=== PATIENT | male | born 1980 | race Caucasian/White ===

== ENCOUNTER 2016-08-12 12:18 | Emergency (ER) | payer OTHER ==
[~2016-08-12] VITALS: Ht 172.7 cm; Wt 87.8 kg
[2016-08-12 13:40] LABS: HEMATOCRIT 43.5 % (38.0-50.0); MCH 29.4 PG (29.0-34.0); MCHC 33.3 G/DL (30.0-36.0); MCV 88.2 FL (86-99); MEAN PLAT.VOLUME 10.8 uM^3 (9.0-12.4); PLATELET COUNT 185 K/uL (156-360); RBC DIS.WIDTH-CV 12.6 % (11.8-14.6); RBC DIS.WIDTH-SD 41.1 % (39-53); RED BLOOD COUNT 4.93 M/uL (4.00-5.50); WHITE BLOOD COUNT 7.4 K/uL (4.1-10.2)
[2016-08-12 13:50] LABS: CHLORIDE 104 mEq/L (99-109); POTASSIUM 3.4 mEq/L (3.7-5.4); SODIUM 141 mEq/L (136-147)
[2016-08-12 13:52] LABS: GLUCOSE 100 mg/dL (70-99)
[2016-08-12 13:53] LABS: ANION GAP 13 MEQ/L (2-14)
[2016-08-12 13:56] LABS: GFR ESTIMATE (CALCULATED) > 59 mL/min/
[2016-08-12 13:57] LABS: UREA NITROGEN (BUN) 20 mg/dL (9-23)
[2016-08-12 13:57] LABS: ADD MIUA? NO; BILIRUBIN NEGATIVE; BLOOD NEGATIVE; COLOR COLORLESS ((YELLOW)); GLUCOSE (STRIP) NEGATIVE; KETONES NEGATIVE; LEUKOCYTES NEGATIVE; NITRITE NEGATIVE; PROTEIN (STRIP) NEGATIVE; SPECIFIC GRAVITY 1.005 (1.000-1.030); UCUL ADDED? NO; UROBILINOGEN 0.2 MG/DL (0.2-1.0)
[2016-08-12 14:30] VITALS: BP 113/75
== END 2016-08-12 14:37 | disposition home or self-care (01) ==
LOC: EME 12:18
PROVIDERS: Emergency Medicine
DX: R42 Dizziness and giddiness (principal); Z87.891 Personal history of nicotine dependence
CPT/HCPCS: 80048; 81003; 85027; 93005; 99281; 99284; J7030